=== PATIENT | female | born 1985 | race Hispanic/Latino ===

== ENCOUNTER 2018-06-22 21:31 | Emergency (ER) | payer SELFPAY ==
--- NOTE | 2018-06-22 22:03 | EDPHYS ---
Physician Documentation [facility] Name: Anay Haynes Age: 33 yrs Sex: Female : 1985 Arrival Date: 06/22/2018 Time: 21:35 Bed 26 Private MD: None, None ED Physician Luis Armando Franklin HPI: 06/22 22:06 This 33 yrs old Female presents to ER via Ambulatory with complaints of Thumb snw Numbness. 22:06 The patient or guardian reports a bite, by an insect. The complaints affect the MCP of snw right thumb. Context: The problem was sustained outdoors, resulted from insect bite. Onset: The symptoms/episode began/occurred suddenly, today. Associated signs and symptoms: Pertinent positives: numbness distally, pruruitis, mild edema. Severity of symptoms: At their worst the symptoms were mild, moderate. The patient has not experienced similar symptoms in the past. It is unknown whether or not the patient has recently seen a physician. 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 - Social history:: Smoking status: Patient/guardian denies using tobacco. - Ebola Screening: : No symptoms or risks identified at this time. ROS: 22:04 Constitutional: Negative for fever, chills, and weight loss, Eyes: Negative for injury, snw pain, redness, and discharge, ENT: Negative for injury, pain, and discharge, Neck: Negative for injury, pain, and swelling, Cardiovascular: Negative for chest pain, palpitations, and edema, Respiratory: Negative for shortness of breath, cough, wheezing, and pleuritic chest pain, Abdomen/GI: Negative for abdominal pain, nausea, vomiting, diarrhea, and constipation, Back: Negative for injury and pain, : Negative for injury, bleeding, discharge, and swelling, MS/Extremity: Negative for injury and deformity, Neuro: Negative for headache, weakness, numbness, tingling, and seizure. 22:04 Skin: Positive for swelling, pruritis and insect sting. Exam: 22:04 Constitutional: This is a well developed, well nourished patient who is awake, alert, snw and in no acute distress. Head/Face: Normocephalic, atraumatic. Eyes: Pupils equal round and reactive to light, extra-ocular motions intact. Lids and lashes normal. Conjunctiva and sclera are non-icteric and not injected. Cornea within normal limits. Periorbital areas with no swelling, redness, or edema. ENT: Nares patent. No nasal discharge, no septal abnormalities noted. Tympanic membranes are normal and external auditory canals are clear. Oropharynx with no redness, swelling, or masses, exudates, or evidence of obstruction, uvula midline. Mucous membranes moist. Neck: Trachea midline, no thyromegaly or masses palpated, and no cervical lymphadenopathy. Supple, full range of motion without nuchal rigidity, or vertebral point tenderness. No Meningismus. Chest/axilla: Normal chest wall appearance and motion. Nontender with no deformity. No lesions are appreciated. Cardiovascular: Regular rate and rhythm with a normal S1 and S2. No gallops, murmurs, or rubs. Normal PMI, no JVD. No pulse deficits. Respiratory: Lungs have equal breath sounds bilaterally, clear to auscultation and percussion. No rales, rhonchi or wheezes noted. No increased work of breathing, no retractions or nasal flaring. Abdomen/GI: Soft, non-tender, with normal bowel sounds. No distension or tympany. No guarding or rebound. No evidence of tenderness throughout. Back: No spinal tenderness. No costovertebral tenderness. Full range of motion. MS/ Extremity: Pulses equal, no cyanosis. Neurovascular intact. Full, normal range of motion. Neuro: Awake and alert, GCS 15, oriented to person, place, time, and situation. Cranial nerves II-XII grossly intact. Motor strength 5/5 in all extremities. Sensory grossly intact. Cerebellar exam normal. Normal gait. Psych: Awake, alert, with orientation to person, place and time. Behavior, mood, and affect are within normal limits. 22:04 Skin: Appearance: normal except for affected area, injury, bite(s), superficial, of the lateral aspect of left hand. Vital Signs: 21:44 BP 120 / 67; Pulse 70; Resp 18; Temp 98.2; Pulse Ox 98% on R/A; Weight 102.06 kg; tl2 Height 5 ft. 1 in. (154.94 cm); Pain 7/10; 21:44 Body Mass Index 42.51 (102.06 kg, 154.94 cm) tl2 MDM: 21:52 Patient medically screened. snw 22:05 Data reviewed: vital signs, nurses notes. Data interpreted: Pulse oximetry: on room air snw is 98 %. Interpretation: normal. Counseling: I had a detailed discussion with the patient and/or guardian regarding: the historical points, exam findings, and any diagnostic results supporting the discharge/admit diagnosis, the need for outpatient follow up, to return to the emergency department if symptoms worsen or persist or if there are any questions or concerns that arise at home. Special discussion: Based on the history and exam findings, there is no indication for further emergent testing or inpatient evaluation. I discussed with the patient/guardian the need to see the primary care provider for further evaluation of the symptoms. Administered Medications: 22:17 Drug: ZyrTEC - Cetirizine 10 mg Route: PO; la1 22:18 Follow up: Response: No adverse reaction la1 Disposition: 06/23 01:19 Co-signature as Attending Physician, Luis Armando Franklin MD. rn Disposition: 06/22/18 22:03 Discharged to Home. Impression: Insect bite (nonvenomous) of hand. - Condition is Stable. - Discharge Instructions: Insect Bite. - Prescriptions for Pepcid 20 mg Oral Tablet - take 1 tablet by ORAL route every 12 hours for 10 days; 20 tablet. Zyrtec 10 mg Oral Tablet - take 1 tablet by ORAL route once daily As needed; 20 tablet. - Medication Reconciliation Form, Thank You Letter, Antibiotic Education, Prescription Opioid Use form. - Follow up: Private Physician; When: 2 - 3 days; Reason: Recheck today's complaints, Continuance of care, Re-evaluation by your physician. Follow up: Emergency Department; When: As needed; Reason: Worsening of condition. Signatures: Malini Mcdaniel, PROPOSAL WRITER-C PROPOSAL WRITER-Csnw Luis Armando Franklin MD MD rn Attema, Lee, RN RN la1 Jennifer Baca RN RN tl2 Corrections: (The following items were deleted from the chart) 06/22 22:18 22:03 06/22/2018 22:03 Discharged to Home. Impression: Insect bite (nonvenomous) of la1 hand. Condition is Stable. Forms are Medication Reconciliation Form, Thank You Letter, Antibiotic Education, Prescription Opioid Use. Follow up: Private Physician; When: 2 - 3 days; Reason: Recheck today's complaints, Continuance of care, Re-evaluation by your physician. Follow up: Emergency Department; When: As needed; Reason: Worsening of condition. snw
--- NOTE | 2018-06-22 22:03 | ER ---
Nurse's Notes [facility] Name: Anay Haynes Age: 33 yrs Sex: Female : 1985 Arrival Date: 06/22/2018 Time: 21:35 Bed 26 Private MD: None, None Diagnosis: Insect bite (nonvenomous) of hand Presentation: 06/22 21:44 Presenting complaint: Patient states: I got bit by something around 6 pm and my left tl2 thumb hurts really bad and feels numb. Mild swelling noted to left thumb. Transition of care: patient was not received from another setting of care. Onset of symptoms was June 22, 2018 at 18:00. Risk Assessment: Do you want to hurt yourself or someone else? Patient reports no desire to harm self or others. Initial Sepsis Screen: Does the patient meet any 2 criteria? No. Patient's initial sepsis screen is negative. Does the patient have a suspected source of infection? No. Patient's initial sepsis screen is negative. Care prior to arrival: None. 21:44 Method Of Arrival: Ambulatory tl2 21:44 Acuity: CHARANJIT 5 tl2 Triage Assessment: 21:44 General: Appears in no apparent distress. comfortable, Behavior is calm, cooperative, tl2 appropriate for age. Pain: Complains of pain in lateral aspect of left hand, dorsal aspect of proximal phalanx of left thumb and palmar aspect of proximal phalanx of left thumb. 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 - Social history:: Smoking status: Patient/guardian denies using tobacco. - Ebola Screening: : No symptoms or risks identified at this time. Screenin:45 Abuse screen: Denies threats or abuse. Nutritional screening: No deficits noted. tl2 Tuberculosis screening: No symptoms or risk factors identified. Fall Risk None identified. Assessment: 21:50 General: Appears in no apparent distress. Behavior is calm, cooperative. Pain: Denies la1 pain. Neuro: Level of Consciousness is awake, alert, obeys commands, Oriented to person, place, time, situation. Neuro: Area Cleaner are equal bilaterally Moves all extremities. Full function Gait is steady, Speech is normal, Facial symmetry appears normal, Pupils are PERRLA. Cardiovascular: Capillary refill < 3 seconds Patient's skin is warm and dry. Respiratory: Airway is patent Respiratory effort is even, unlabored, Respiratory pattern is regular, symmetrical. GI: No signs and/or symptoms were reported involving the gastrointestinal system. : No signs and/or symptoms were reported regarding the genitourinary system. Derm: Reports pain left thumb. Vital Signs: 21:44 BP 120 / 67; Pulse 70; Resp 18; Temp 98.2; Pulse Ox 98% on R/A; Weight 102.06 kg; tl2 Height 5 ft. 1 in. (154.94 cm); Pain 7/10; 21:44 Body Mass Index 42.51 (102.06 kg, 154.94 cm) tl2 ED Course: 21:35 Patient arrived in ED. mr 21:35 None, None is Private Physician. mr 21:40 Carroll Garsia RN is Primary Nurse. la1 21:44 Triage completed. tl2 21:44 Arm band placed on right wrist. tl2 21:46 Patient has correct armband on for positive identification. Bed in low position. Call tl2 light in reach. Side rails up X 1. 21:51 No provider procedures requiring assistance completed. Patient did not have IV access la1 during this emergency room visit. 21:52 Malini Mcdaniel FNP-C [facility]. snw 21:52 Luis Armando Franklin MD is Attending Physician. snw Administered Medications: 22:17 Drug: ZyrTEC - Cetirizine 10 mg Route: PO; la1 22:18 Follow up: Response: No adverse reaction la1 Outcome: 22:00 Discharged to home ambulatory. la1 22:00 Condition: stable 22:00 Discharge instructions given to patient, Instructed on discharge instructions, follow up and referral plans. Demonstrated understanding of instructions, follow-up care. 22:03 Discharge ordered by . snw 22:18 Patient left the ED. la1 Signatures: Malini Mcdaniel FNP-C CHINCHILLA FARMER-Csnw NelsonRosemary mr Carroll Garsia RN RN la1 Jennifer Baca RN RN tl2
[2018-06-22] MEDS ORDERED: CETIRIZINE HCL 5 MG TABLET ONE (22:23)
== END 2018-06-22 22:18 | disposition home or self-care (01) ==
LOC: EDSEX 21:31 → ER 21:31
DX: S60.361A Insect bite (nonvenomous) of right thumb, initial encounter (principal); W57.XXXA Bitten or stung by nonvenomous insect and other nonvenomous arthropods, initial encounter
CPT/HCPCS: 99283

== ENCOUNTER 2020-02-23 11:10 | Emergency (ER) | payer SELFPAY ==
[2020-02-23] MEDS ORDERED: ACETAMINOPHEN 500 MG TAB ONE (11:59)
[2020-02-23] MEDS ORDERED: IBUPROFEN 400 MG TAB ONE (12:38)
--- NOTE | 2020-02-23 12:54 | EDPHYS ---
Physician Documentation [facility] Name: Anay Haynes Age: 34 yrs Sex: Female : 1985 Arrival Date: 02/23/2020 Time: 11:11 Bed 23 Private MD: SHAYLEE Physician Junior Maciel HPI: 02/22 12:50 This 34 yrs old Female presents to ER via Ambulatory with complaints of Fever, alec Ear Pain, Difficulty Swallowing. 12:50 The patient reports fever, that was measured at 100 degrees Fahrenheit. Onset: The alec symptoms/episode began/occurred 2 day(s) ago. Modifying factors: there are no obvious modifying factors. Associated signs and symptoms: Pertinent positives: chills, cough, runny nose, sinus congestion. Severity of symptoms: At their worst the symptoms were mild in the emergency department the symptoms are unchanged. The patient has not experienced similar symptoms in the past. 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 - Social history:: Smoking status: Patient denies any tobacco usage or history of. - Family history:: not pertinent. ROS: 12:50 Constitutional: Negative for fever, chills, and weight loss, Eyes: Negative for injury, alec pain, redness, and discharge, Neck: Negative for injury, pain, and swelling, Cardiovascular: Negative for chest pain, palpitations, and edema, Respiratory: Negative for shortness of breath, cough, wheezing, and pleuritic chest pain, Abdomen/GI: Negative for abdominal pain, nausea, vomiting, diarrhea, and constipation, Back: Negative for injury and pain, : Negative for injury, bleeding, discharge, and swelling, MS/Extremity: Negative for injury and deformity, Skin: Negative for injury, rash, and discoloration, Neuro: Negative for headache, weakness, numbness, tingling, and seizure, Psych: Negative for depression, anxiety, suicide ideation, homicidal ideation, and hallucinations, Allergy/Immunology: Negative for hives, rash, and allergies, Endocrine: Negative for neck swelling, polydipsia, polyuria, polyphagia, and marked weight changes, Hematologic/Lymphatic: Negative for swollen nodes, abnormal bleeding, and unusual bruising. 12:50 ENT: Positive for pulling at ears, rhinorrhea, sinus congestion, sore throat. Exam: 12:50 Constitutional: This is a well developed, well nourished patient who is awake, alert, alec and in no acute distress. Head/Face: Normocephalic, atraumatic. Eyes: Pupils equal round and reactive to light, extra-ocular motions intact. Lids and lashes normal. Conjunctiva and sclera are non-icteric and not injected. Cornea within normal limits. Periorbital areas with no swelling, redness, or edema. Neck: Trachea midline, no thyromegaly or masses palpated, and no cervical lymphadenopathy. Supple, full range of motion without nuchal rigidity, or vertebral point tenderness. No Meningismus. Chest/axilla: Normal chest wall appearance and motion. Nontender with no deformity. No lesions are appreciated. Cardiovascular: Regular rate and rhythm with a normal S1 and S2. No gallops, murmurs, or rubs. Normal PMI, no JVD. No pulse deficits. Respiratory: Lungs have equal breath sounds bilaterally, clear to auscultation and percussion. No rales, rhonchi or wheezes noted. No increased work of breathing, no retractions or nasal flaring. Abdomen/GI: Soft, non-tender, with normal bowel sounds. No distension or tympany. No guarding or rebound. No evidence of tenderness throughout. Back: No spinal tenderness. No costovertebral tenderness. Full range of motion. Pelvic Exam: Normal external genitalia. Speculum exam with closed cervical os, no discharge or bleeding noted. Bimanual exam with normal adnexa, no adnexal or cervical motion tenderness. Normal uterus. Female : Normal external genitalia. Skin: Warm, dry with normal turgor. Normal color with no rashes, no lesions, and no evidence of cellulitis. MS/ Extremity: Pulses equal, no cyanosis. Neurovascular intact. Full, normal range of motion. Neuro: Awake and alert, GCS 15, oriented to person, place, time, and situation. Cranial nerves II-XII grossly intact. Motor strength 5/5 in all extremities. Sensory grossly intact. Cerebellar exam normal. Normal gait. Psych: Awake, alert, with orientation to person, place and time. Behavior, mood, and affect are within normal limits. 12:50 ENT: Posterior pharynx: Airway: no evidence of obstruction, Tonsils: enlarged on the right, enlarged on the left, bilaterally enlarged, Uvula: midline, swelling, that is mild, erythema, that is mild, exudate, that is moderate, peritonsillar mass, is not appreciated, pooling of secretions, is not appreciated. Vital Signs: 11:31 BP 123 / 89; Pulse 100; Resp 18 S; Temp 97.7(TE); Pulse Ox 100% on R/A; Weight 104.33 ca1 kg (R); Height 5 ft. 1 in. (154.94 cm) (R); Pain 1010; 14:14 BP 124 / 86; Pulse 99; Resp 18 S; Pulse Ox 100% on R/A; jd3 11:31 Body Mass Index 43.46 (104.33 kg, 154.94 cm) ca1 MDM: 12:04 Patient medically screened. [facility] 02/22 11:36 Order name: Strep; Complete Time: 12:49 ca1 02/22 11:36 Order name: Flu; Complete Time: 12:49 ca1 02/22 12:27 Order name: Throat Culture EDMS Administered Medications: 11:46 Drug: Tylenol 1000 mg Route: PO; ca1 14:15 Follow up: Response: No adverse reaction jd3 12:33 Drug: Motrin 800 mg Route: PO; jd3 14:15 Follow up: Response: No adverse reaction jd3 13:34 Drug: Decadron 10 mg Route: IM; Site: left gluteus; jd3 14:15 Follow up: Response: No adverse reaction jd3 13:34 Drug: Bicillin L-A 1.2 million units Route: IM; Site: left gluteus; jd3 14:15 Follow up: Response: No adverse reaction jd3 13:34 Drug: Clindamycin 300 mg Route: PO; jd3 14:14 Follow up: Response: No adverse reaction jd3 Disposition: 02/23/20 12:53 Discharged to Home. Impression: Fever, unspecified, Acute tonsillitis. - Condition is Stable. - Discharge Instructions: Fever, Adult, Tonsillitis, Tonsillitis, [id number], Fever, Adult, [id number]. - Prescriptions for dexamethasone 2 mg Oral tablet - take 1 tablet by ORAL route 3 times per day; 9 tablet. Clindamycin HCl 300 mg Oral Capsule - take 1 capsule by ORAL route every 6 hours for 10 days; 40 capsule. - Medication Reconciliation Form, Thank You Letter, Antibiotic Education, Prescription Opioid Use form. - Follow up: Private Physician; When: 2 - 3 days; Reason: Recheck today's complaints, Continuance of care, Re-evaluation by your physician. Follow up: Bria Ricketts MD; When: 2 - 3 days; Reason: Recheck today's complaints, Re-evaluation by your physician. - Problem is new. - Symptoms have improved. Signatures: Dispatcher [employer] EDMS Junior Maciel MD MD cha Davies, Jonathon, RN RN jd3 Acletty, MARYAN Pulido RN ca1 Corrections: (The following items were deleted from the chart) 14:15 12:53 02/23/2020 12:53 Discharged to Home. Impression: Fever, unspecified; Acute jd3 tonsillitis. Condition is Stable. Forms are Medication Reconciliation Form, Thank You Letter, Antibiotic Education, Prescription Opioid Use. Follow up: Private Physician; When: 2 - 3 days; Reason: Recheck today's complaints, Continuance of care, Re-evaluation by your physician. Follow up: Bria Ricketts; When: 2 - 3 days; Reason: Recheck today's complaints, Re-evaluation by your physician. Problem is new. Symptoms have improved. alec
--- NOTE | 2020-02-23 12:54 | ER ---
Nurse's Notes [facility] Name: Anay Haynes Age: 34 yrs Sex: Female : 1985 Arrival Date: 02/23/2020 Time: 11:11 Bed 23 Private MD: Diagnosis: Fever, unspecified;Acute tonsillitis Presentation: 02/22 11:31 Chief complaint: Patient states: Sunday night, L ear pain and sore throat. Difficulty ca1 swallow, with swollen, patchy tonsils. Htemp 103.4 on Sunday. Symptoms have gotten worse since then and now has headache. Denies cough and congestion. Coronavirus screen: Client denies travel out of the [place] in the last 14 days. fever, headache, sore throat, The client reports previous COVID testing was negative. Date of collection: February 16, 2020. Ebola Screen: Patient negative for fever greater than or equal to 101.5 degrees Fahrenheit, and additional compatible Ebola Virus Disease symptoms Patient denies exposure to infectious person. Patient denies travel to an Ebola-affected area in the 21 days before illness onset. No symptoms or risks identified at this time. Initial Sepsis Screen: Does the patient meet any 2 criteria? No. Patient's initial sepsis screen is negative. Does the patient have a suspected source of infection? No. Patient's initial sepsis screen is negative. Risk Assessment: Do you want to hurt yourself or someone else? Patient reports no desire to harm self or others. Onset of symptoms was February 23, 2020. 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 - Social history:: Smoking status: Patient denies any tobacco usage or history of. - Family history:: not pertinent. Screenin:16 Abuse screen: Denies threats or abuse. Nutritional screening: No deficits noted. jd3 Tuberculosis screening: No symptoms or risk factors identified. Fall Risk Ambulatory Aid- None/Bed Rest/Nurse Assist (0 pts). Gait- Normal/Bed Rest/Wheelchair (0 pts) Mental Status- Oriented to own ability (0 pts). Total Chen Fall Scale indicates No Risk (0-24 pts). Assessment: 12:14 General: Appears in no apparent distress. uncomfortable, Behavior is calm, cooperative, jd3 appropriate for age. Pain: Complains of pain in head, throat and left ear Quality of pain is described as aching, sharp. Neuro: Level of Consciousness is awake, alert, obeys commands, Oriented to person, place, time, situation. Cardiovascular: Denies chest pain, Capillary refill < 3 seconds Patient's skin is warm and dry. Respiratory: Airway is patent Respiratory effort is even, unlabored, Respiratory pattern is regular, symmetrical, Denies cough, shortness of breath. GI: No signs and/or symptoms were reported involving the gastrointestinal system. : No signs and/or symptoms were reported regarding the genitourinary system. EENT: Tympanic membrane reddened on left ear Throat is reddened has patchy exudate bilaterally Reports pain when swallowing. Derm: Skin is intact, Skin is dry, Skin is normal, Skin temperature is warm. Musculoskeletal: Circulation, motion, and sensation intact. Range of motion: intact in all extremities. 13:15 Reassessment: Patient appears in no apparent distress at this time. No changes from jd3 previously documented assessment. Patient and/or family updated on plan of care and expected duration. Pain level reassessed. Patient is alert, oriented x 3, equal unlabored respirations, skin warm/dry/pink. 14:13 Reassessment: Patient appears in no apparent distress at this time. Patient and/or jd3 family updated on plan of care and expected duration. Pain level reassessed. Patient is alert, oriented x 3, equal unlabored respirations, skin warm/dry/pink. Patient states feeling better. Vital Signs: 11:31 BP 123 / 89; Pulse 100; Resp 18 S; Temp 97.7(TE); Pulse Ox 100% on R/A; Weight 104.33 ca1 kg (R); Height 5 ft. 1 in. (154.94 cm) (R); Pain 10/10; 14:14 BP 124 / 86; Pulse 99; Resp 18 S; Pulse Ox 100% on R/A; jd3 11:31 Body Mass Index 43.46 (104.33 kg, 154.94 cm) ca1 ED Course: 11:11 Patient arrived in ED. ag5 11:35 Triage completed. ca1 11:36 Arm band placed on right wrist. ca1 11:46 Strep Sent. ca1 11:46 Flu Sent. ca1 12:01 Cassius Solares RN is Primary Nurse. jd3 12:04 Junior Maciel MD is Attending Physician. [facility] [place] [facility] 12:16 Patient has correct armband on for positive identification. Bed in low position. Call jd3 light in reach. Side rails up X 1. Adult w/ patient. Pulse ox on. NIBP on. 12:53 Bria Ricketts MD is Referral Physician. [facility] [place] [facility] 14:13 No provider procedures requiring assistance completed. Patient did not have IV access jd3 during this emergency room visit. Administered Medications: 11:46 Drug: Tylenol 1000 mg Route: PO; ca1 14:15 Follow up: Response: No adverse reaction jd3 12:33 Drug: Motrin 800 mg Route: PO; jd3 14:15 Follow up: Response: No adverse reaction jd3 13:34 Drug: Decadron 10 mg Route: IM; Site: left gluteus; jd3 14:15 Follow up: Response: No adverse reaction jd3 13:34 Drug: Bicillin L-A 1.2 million units Route: IM; Site: left gluteus; jd3 14:15 Follow up: Response: No adverse reaction jd3 13:34 Drug: Clindamycin 300 mg Route: PO; jd3 14:14 Follow up: Response: No adverse reaction jd3 Outcome: 12:53 Discharge ordered by . alec 14:13 Discharged to home ambulatory, with family. jd3 14:13 Condition: stable 14:13 Discharge instructions given to patient, family, Instructed on discharge instructions, follow up and referral plans. medication usage, Demonstrated understanding of instructions, follow-up care, medications, Prescriptions given X 2. 14:15 Patient left the ED. jd3 Signatures: Junior Maciel MD MD cha Davies, Jonathon, Tess Aguiar RN, RN RN ca1 Delfin Christensen ag5
[2020-02-23] MEDS ORDERED: dexAMETHasone 4 MG/ML VIAL ONE (13:39)
[2020-02-23] MEDS ORDERED: PEN G BENZ LA 1.2MU/2ML SYRINGE IM ONE (13:40)
[2020-02-23 14:24] VITALS: TEMP 97.7; O2SAT 100
[2020-02-23 14:30] VITALS: BP 124/86
== END 2020-02-23 14:15 | disposition home or self-care (01) ==
LOC: ER 11:10
DX: J03.90 Acute tonsillitis, unspecified (principal)
CPT/HCPCS: 87070; 87081; 87804; 96372; 99284; J0561; J1100

== ENCOUNTER 2021-10-28 11:25 | Emergency (ER) | payer SELFPAY ==
--- NOTE | 2021-10-28 13:13 | EDPHYS ---
Physician Documentation [facility] Name: Anay Haynes Age: 36 yrs Sex: Female : 1985 Arrival Date: 10/28/2021 Time: 11:27 Bed 27 Private MD: SHAYLEE Physician Daniel Charlton HPI: 10/28 13:12 This 36 yrs old Female presents to ER via Ambulatory with complaints of Ear pm1 Pain. 13:12 The patient presents with pain, that is acute. The complaints affect the right ear and pm1 left ear, more in the right ear. Onset: The symptoms/episode began/occurred 3 day(s) ago. Modifying factors: The symptoms are alleviated by nothing, the symptoms are aggravated by nothing. Associated signs and symptoms: Pertinent positives: cough, rhinorrhea, Pertinent negatives: fever. Severity of symptoms: in the emergency department the symptoms are worse. The patient has not experienced similar symptoms in the past. The patient has not recently seen a physician, Patient was seen at a clinic by the clinic nurse who checked at her ears and instructed her to report to the ER because they were bulging. At the clinic, patient was not seen by a MD. Tested for COVID at her work. 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 - Social history:: Smoking status: Patient denies any tobacco usage or history of. ROS: 13:12 Constitutional: Negative for fever, chills, and weight loss, Cardiovascular: Negative pm1 for chest pain, palpitations, and edema, Respiratory: Negative for shortness of breath, cough, wheezing, and pleuritic chest pain. 13:12 MS/Extremity: Negative for injury and deformity, Skin: Negative for injury, rash, and discoloration. 13:12 Neuro: Negative for headache, weakness, numbness, tingling, and seizure. 13:12 ENT: Positive for ear pain, sore throat, post nasal drainage. 13:12 All other systems are negative. Exam: 13:12 Constitutional: This is a well developed, well nourished patient who is awake, alert, pm1 and in no acute distress. Head/Face: Normocephalic, atraumatic. 13:12 Back: No spinal tenderness. No costovertebral tenderness. Full range of motion. Skin: Warm, dry with normal turgor. Normal color with no rashes, no lesions, and no evidence of cellulitis. MS/ Extremity: Pulses equal, no cyanosis. Neurovascular intact. Full, normal range of motion. 13:12 ENT: External ear(s): no acute changes, Ear canal(s): no acute changes, TM's: bulging, on the right, on the left, erythema, on the right, Nose: no acute changes, Mouth: no acute changes, Lips: normal, moist, Oral mucosa: pink and intact, moist. 13:12 Cardiovascular: Exam negative for acute changes, Rate: normal, Rhythm: regular, Pulses: no pulse deficits are appreciated, Heart sounds: normal. 13:12 Respiratory: Exam negative for acute changes, respiratory distress, shortness of breath. 13:12 Neuro: Exam negative for acute changes, Orientation: is normal, Mentation: is normal, Motor: is normal, moves all fours. Vital Signs: 12:01 BP 113 / 83; Pulse 76; Resp 16; Temp 97.9; Pulse Ox 100% ; Weight 90.72 kg; Height 5 vg1 ft. 1 in. (154.94 cm); Pain 7/10; 12:01 Body Mass Index 37.79 (90.72 kg, 154.94 cm) vg1 MDM: 13:07 Patient medically screened. pm1 13:12 Data reviewed: vital signs. Data interpreted: Pulse oximetry: on room air is 100 %. pm1 Interpretation: normal. Counseling: I had a detailed discussion with the patient and/or guardian regarding: the historical points, exam findings, and any diagnostic results supporting the discharge/admit diagnosis, the need for outpatient follow up, to return to the emergency department if symptoms worsen or persist or if there are any questions or concerns that arise at home. Administered Medications: No medications were administered Disposition: 16:22 Co-signature as Attending Physician, Daniel Charlton MD I agree with the assessment and kdr plan of care. Disposition Summary: 07/01/22 13:13 Discharge Ordered Location: Home pm1 Problem: new pm1 Symptoms: have improved pm1 Condition: Stable pm1 Diagnosis - Otitis media, unspecified, right ear pm1 - Cough pm1 Followup: pm1 - With: Emergency Department - When: As needed - Reason: Worsening of condition Followup: pm1 - With: Private Physician - When: 2 - 3 days - Reason: Recheck today's complaints, Continuance of care, Re-evaluation by your physician Discharge Instructions: - Discharge Summary Sheet pm1 - Otitis Media, Adult pm1 - Cough, Adult pm1 Forms: - Medication Reconciliation Form pm1 - Thank You Letter pm1 - Antibiotic Education pm1 - Prescription Opioid Use pm1 Prescriptions: - Amoxicillin 500 mg Oral Capsule - take 1 capsule by ORAL route every 8 hours for 10 days; 30 tablet; Refills: 0, pm1 Product Selection Permitted - Guaifenesin AC 10-100 mg/5 mL Oral Liquid - take 10 milliliters by ORAL route every 4 hours As needed; 240 milliliter; pm1 Refills: 0, Product Selection Permitted Signatures: Daniel Charlton MD MD kdr Marinas, Patrick, NP STRAIGHT PIN MAKING MACHINE OPERATOR pm1 Ora Cantu RN RN vg1
--- NOTE | 2021-10-28 13:13 | ER ---
Nurse's Notes [facility] Name: Anay Haynes Age: 36 yrs Sex: Female : 1985 Arrival Date: 10/28/2021 Time: 11:27 Bed 27 Private MD: Diagnosis: Otitis media, unspecified, right ear;Cough Presentation: 10/28 12:01 Chief complaint: Patient states: LANETTE ear pain since 10/24, went to [facility] and was vg1 told to come to ED bc "ear drums are about to burst". Coronavirus screen: Vaccine status: Patient reports being unvaccinated. Client denies travel out of the [place] in the last 14 days. Ebola Screen: Patient denies exposure to infectious person. Patient denies travel to an Ebola-affected area in the 21 days before illness onset. Initial Sepsis Screen: Does the patient meet any 2 criteria? No. Patient's initial sepsis screen is negative. Does the patient have a suspected source of infection? No. Patient's initial sepsis screen is negative. Risk Assessment: Do you want to hurt yourself or someone else? Patient reports no desire to harm self or others. Onset of symptoms was October 24, 2021. 12:01 Method Of Arrival: Ambulatory vg1 12:01 Acuity: CHARANJIT 4 vg1 Triage Assessment: 12:04 General: Appears uncomfortable, Behavior is calm, cooperative. Pain: Complains of pain vg1 in right ear and left ear Pain currently is 7 out of 10 on a pain scale. 13:20 EENT: Reports pain in left ear and right ear. 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 - Social history:: Smoking status: Patient denies any tobacco usage or history of. Screenin:19 Abuse screen: Denies threats or abuse. Nutritional screening: No deficits noted. ap3 Tuberculosis screening: No symptoms or risk factors identified. Fall Risk None identified. Vital Signs: 12:01 BP 113 / 83; Pulse 76; Resp 16; Temp 97.9; Pulse Ox 100% ; Weight 90.72 kg; Height 5 vg1 ft. 1 in. (154.94 cm); Pain 7/10; 12:01 Body Mass Index 37.79 (90.72 kg, 154.94 cm) vg1 ED Course: 11:27 Patient arrived in ED. rg4 12:04 Triage completed. vg1 12:04 Arm band placed on. vg1 12:25 Alejandrina Lehman, RN is Primary Nurse. ap3 12:49 Robbie Garg NP is PHCP. pm1 12:49 Daniel Charlton MD is Attending Physician. pm1 13:19 No provider procedures requiring assistance completed. Patient did not have IV access ap3 during this emergency room visit. 13:20 Patient has correct armband on for positive identification. Bed in low position. Call ap3 light in reach. Side rails up X 1. Pulse ox on. NIBP on. Administered Medications: No medications were administered Medication: 13:20 VIS not applicable for this client. ap3 Outcome: 13:13 Discharge ordered by . pm1 13:20 Condition: good ap3 13:34 Discharged to home ambulatory. ap3 13:34 Discharge instructions given to patient, Instructed on discharge instructions, follow up and referral plans. medication usage, Demonstrated understanding of instructions, follow-up care, medications, Prescriptions given X 1. 13:34 Patient left the ED. ap3 Signatures: Robbie Garg NP ARMHOLE PRESSER pm1 Lexy Cantu rg Alejandrina Lehman RN RN ap3 Ora Cantu RN RN vg1
[2021-10-28 13:44] VITALS: BP 113/83; TEMP 97.9; O2SAT 100
== END 2021-10-28 13:34 | disposition home or self-care (01) ==
LOC: ER 11:25
DX: H66.91 Otitis media, unspecified, right ear (principal); R05.9 Cough, unspecified
CPT/HCPCS: 99283